=== PATIENT | male | born 1970 | race African-American/Black ===

== ENCOUNTER 2016-07-24 07:00 | Inpatient (IN) ==
[2016-07-24] MEDS ORDERED: FLUOROURACIL 800 MG in SYRINGE 1 EACH IV ONE (09:00)
[2016-07-24] MEDS ORDERED: DEXTROSE 5% IV ONE (09:00)
[2016-07-24] MEDS ORDERED: DEXAMETHASONE 4 MG/1 ML VIAL IV ONE (09:00)
[2016-07-24] MEDS ORDERED: LEUCOVORIN INJ 700 MG in DEXTROSE 5% 250 ML IV ONE (09:00)
[2016-07-24] MEDS ORDERED: PALONOSETRON 0.25 MG/5 ML VIAL IV ONE (09:00)
[2016-07-24] MEDS ORDERED: OXALIPLATIN IV ONE (09:00)
[2016-07-24] MEDS ORDERED: chlorproMAZINE 25 MG TABLET PO PRN (09:14)
[2016-07-24] MEDS ORDERED: LACTULOSE 20 GM/30 ML UDCUP PO PRN (09:14)
[2016-07-24] MEDS ORDERED: BENZTROPINE 2 MG/2 ML AMP IV PRN (09:14)
[2016-07-24] MEDS ORDERED: ALUMINUM/MAGNES/SIMETH MAX STR 30 ML UDCUP PO PRN (09:14)
[2016-07-24] MEDS ORDERED: LOPERAMIDE 2 MG CAPSULE PO PRN ×2 (09:14)
[2016-07-24] MEDS ORDERED: chlorproMAZINE INJ 25 MG in SODIUM CHLORIDE 0.9% 100 ML IV PRN (09:14)
[2016-07-24] MEDS ORDERED: PROMETHAZINE INJ 25 MG in SODIUM CHLORIDE 0.9% 50 ML IV PRN (09:14)
[2016-07-24] MEDS ORDERED: MAGNESIUM HYDROXIDE SUSP 30 ML UDCUP PO PRN (09:14)
[2016-07-24] MEDS ORDERED: ONDANSETRON 4 MG/2 ML VIAL IV PRN (09:14)
[2016-07-24] MEDS ORDERED: TEMAZEPAM 7.5 MG CAPSULE PO PRN (09:14)
[2016-07-24] MEDS ORDERED: guaiFENesin 200 MG/10 ML UDCUP PO PRN (09:14)
[2016-07-24] MEDS ORDERED: chlorproMAZINE INJ 50 MG in SODIUM CHLORIDE 0.9% 100 ML IV PRN (09:14)
[2016-07-24] MEDS ORDERED: MYLANTA/LIDO VISC 2:1 300 ML BOTTLE SWISH/SPIT PRN (09:14)
[2016-07-24] MEDS ORDERED: MYLANTA/LIDO VISC 2:1 300 ML BOTTLE SWISH/SWAL PRN (09:14)
[2016-07-24] MEDS: FLUOROURACIL IV SCH (14:42)
[2016-07-24] MEDS: SODIUM CHLORIDE 0.9% IV SCH (14:42)
--- NOTE | 2016-07-24 14:49 | General Surgery Consult Note ---
Assessment and Plan - Time spent with patient Time spent with patient: Greater than 30 minutes (1) Colon cancer metastasized to lung Status: Acute Assessment and plan: 07/24/16 Colon cancer with patient's report of lung metastasis. Dr Bosch is requesting mediport for ease of chemotherapy treatments. We will review his labs and plan surgery later this week. Unfortunately, he is taking Xarelto, which will need to be held for 3 days prior to surgery; his last reported dose was last night, so we're tentatively planning for port insertion on Sunday or . Current Visit: Yes History of Present Illness Chief complaint: Colon cancer with metastasis; needs mediport History of present illness: Mr. Krishna is a 46 year old male Home Medications Medication Instructions Recorded Confirmed Type ALPRAZolam [Alprazolam] 0.5 mg PO TID 07/24/16 07/24/16 History Atenolol [Atenolol] 50 mg PO DAILY 07/24/16 07/24/16 History Citalopram Hydrobromide [Celexa] 10 mg PO DAILY 07/24/16 07/24/16 History Colchicine [Colcrys] 0.6 mg PO DAILY 07/24/16 07/24/16 History Diclofenac Sodium [Diclofenac 1 % TOP BID PRN 07/24/16 07/24/16 History Sodium 1% Gel] Ferrous Sulfate 325 mg PO DAILY 07/24/16 07/24/16 History Furosemide [Furosemide] 40 mg PO BID 07/24/16 07/24/16 History HYDROcodone/ACETAMIN 10-325 [[place] 1 tablet PO Q6H PRN 07/24/16 07/24/16 History 10-325] Ketoconazole 2% Cream [Nizoral 2% 1 applic TOP BID 07/24/16 07/24/16 History Cream] Pantoprazole Tab [Protonix Tab] 40 mg PO DAILY 07/24/16 07/24/16 History Pregabalin [Lyrica] 100 mg PO TID 07/24/16 07/24/16 History Probenecid 250 mg PO Q12HR 07/24/16 07/24/16 History Rivaroxaban [Xarelto] 20 mg PO DAILY 07/24/16 07/24/16 History guaiFENesin [Mucus Relief] 400 mg PO Q4HR PRN 07/24/16 07/24/16 History hydrALAZINE TAB [Apresoline Tab] 25 mg PO BID 07/24/16 07/24/16 History hydrOXYzine pamoate [Hydroxyzine 50 mg PO Q6HR PRN 07/24/16 07/24/16 History Pamoate] predniSONE TAB [PredniSONE] 5 mg PO DAILY 07/24/16 07/24/16 History Allergies Allergy/AdvReac Type Severity Reaction Status Date / Time acetaminophen [From NyQuil] Allergy Intermediate Swelling Verified 09/07/14 08: 12 of Lip/Tongue/Throat dextromethorphan Allergy Intermediate Swelling Verified 09/07/14 08:12 [From NyQuil] of Lip/Tongue/Throat doxylamine [From NyQuil] Allergy Intermediate Swelling Verified 09/07/14 08:12 of Lip/Tongue/Throat pseudoephedrine [From NyQuil] Allergy Intermediate Swelling Verified 09/07/14 08 :12 of Lip/Tongue/Throat Medical,Surgical,& Family Hx - Medical History Cardio: History of: Hypertension (on meds) Respiratory: History of: Respiratory Problems (uses cpap) Gastrointestinal: History of: Gastrointestinal Cancer (Pt reports colon cancer surgery at [place] in December 2015) Other: History of: Cancer (active treatment) - Family History Family History: Reports;: Family Cancer (grandfather and grandmother), Family Diabetes (aunt), Family Hypertension (mother and father) - Social History Smoking Status: Former smoker Exam - Constitutional Vitals: Period Temp Pulse Resp BP Sys/Umaña Pulse Ox Last 24 Hr 96.4 F-97.0 F 80-95 20-22 159-183/85-93 91-99 General appearance: no acute distress, morbidly obese - Head Head exam: Present: normocephalic - Eye Eye exam: Present: EOMI. Absent: nystagmus, periorbital swelling Pupils: Present: MARGARITA - ENT Mouth exam: Present: normal voice, dry mucosa. Absent: oral lesion - Neck Neck exam: Present: trachea midline, other (Healed trach scar) - Respiratory Respiratory exam: Present: rhonchi. Absent: accessory muscle use, chest wall tenderness, rales, wheezes - Cardiovascular Cardiovascular exam: Present: RRR - GI/Abdominal GI/Abdominal exam: Present: other (Massively obese abdomen with well healed surgical scars. No guarding, no rebound tenderness. No palpable hernias. Hypoactive bowel sounds. ) - Extremities Exam Extremities exam: Present: normal inspection - Neurological Exam Neurological exam: Present: alert, oriented X3 Speech: Present: normal Results - Impressions There are no recorded labs on this patient's chart.
[2016-07-24] MEDS ORDERED: DICLOFENAC 1% GEL 100 GM TUBE TOP PRN (15:04)
[2016-07-24] MEDS: FUROSEMIDE 40 MG TABLET PO SCH (16:16)
[2016-07-24] MEDS: hydrALAZINE 25 MG TABLET PO SCH (22:10)
[2016-07-24] MEDS: PREGABALIN 100 MG CAPSULE PO SCH (22:10)
[2016-07-24] MEDS: PROBENECID 500 MG TABLET PO SCH (22:10)
[2016-07-24] MEDS: DESITIN 4OZ/NYSTATIN 15 GRAM MIXTURE PASTE TOP SCH (22:11)
[2016-07-24] MEDS: ALPRAZolam 0.25 MG TABLET PO PRN (22:11)
[2016-07-24] MEDS: KETOCONAZOLE 2% CREAM 30 GM TUBE TOP SCH (22:11)
[2016-07-25 05:51] LABS: Basophils % 0.4 % (0.0-0.8); Hematocrit 32.8 VOL% (42.0-52.0); Hemoglobin 9.7 GM/DL (14.0-18.0); Immature Granulocytes % 0.6 %; Immature Granulocytes Absolute 0.06 #; Lymphocytes # 1.3 10*3/uL (1.4-4.0); Lymphocytes % 12.3 % (21.2-54.2); Mean Corpuscular HGB Conc 29.6 GM/DL (32-36); Mean Corpuscular Hemoglobin 22 PG (27-34); Mean Corpuscular Volume 74.4 FL (87-102); Mean Platelet Volume 11.3 FL (9.6-12.0); Monocytes # 1.3 10*3/uL (0.11-0.8); Neutrophils # 7.9 10*3/uL (1.4-7.4); Neutrophils % 74.7 % (38.7-73.9); Platelet Count 411 T/CUMM (130-400); Red Blood Count 4.41 MC/CUMM (3.8-5.5); Red Cell Distribution Width 20.6 % (9.3-17.3); White Blood Count 10.6 T/CUMM (4-12)
[2016-07-25 06:02] LABS: INR 1.2; PT Patient Result 12.3 SECS
[2016-07-25 06:03] LABS: Partial Thromboplastin Time 42.8 SECS (0-40)
[2016-07-25 06:21] LABS: Albumin 2.5 G/DL (3.4-5.0); Bilirubin,Total 0.4 MG/DL (0.2-1.0); Calcium 8.5 MG/DL (8.5-10.1); Osmolality,Calculated 286.1 MOS/KG (273-304); Potassium 4.1 MMOL/L (3.5-5.1); Total Protein 6.8 G/DL (6.4-8.3)
--- NOTE | 2016-07-25 07:21 | EKG Report ---
Stationary ECG Study [facility] Test Date: 07/25/2016 6:47:36 AM Pat Name: SENIA PATE Department: Room: 432 Gender: M Color Matcher: BIN : 1970 Requested by: Rick Castro Order Number: [id number] Reading MD: NIHARIKA REYNOLDS Intervals [place] Rate: 60 P: 44 VT: 190 QRS: 116 QRSD: 113 T: 4 QT: 454 QTc: 455 Interpretive Statements NORMAL SINUS RHYTHM RIGHT AXIS DEVIATION INCOMPLETE RIGHT BUNDLE Electronically Signed On 07-25-16 18:24:25 CDT by NIHARIKA REYNOLDS [email or web address]
--- NOTE | 2016-07-25 08:44 | XRay Report ---
Portable chest Date: 07/25/2016 Clinical history: Report preoperative evaluation for MediPort catheter placement Comparison: 02/10/2012 Technique: Portable AP sitting chest Findings: Stable cardiomegaly with uncoiling of the aorta. Calcified granulomata/nodes with progressive ill-defined nodular densities. Increased hilar density with degenerative changes. Impression: Old healed healed granulomatous disease with chronic scarring. Progressive noncalcified nodular densities which can be seen with possible metastatic disease, artifact, etc. More prominent julien which may be related to prominent vasculature, adenopathy, etc. CT of the chest may be helpful for further evaluation. PROCEDURE INTERPRETED AT [facility] DEPARTMENT OF RADIOLOGY Final Report Signed by: Dr. Sammie Argueta
--- NOTE | 2016-07-25 09:13 | Oncology History&Physical ---
Assessment and Plan (1) Colon cancer metastasized to lung Status: Acute Assessment and plan: Chemotherapy cycle 1 with FOLFOX. Patient with history of embolic event on Xarelto. This will be held temporarily for Mediport placement on with Dr. Rick Castro. The chemotherapy should complete Sunday evening with discharge with resumption of anticoagulation at that time Current Visit: Yes History of Present Illness Chief complaint: Chemotherapy History of present illness: Mr. Krishna is a 46 year old male Admitted for first cycle of chemotherapy for metastatic colon cancer. This was diagnosed approximately November or December 2015 at [facility] with surgery. The patient does have stage IV disease with lung metastases. He has morbid obesity and has had significant difficulty with ambulation and mobilization following his surgery. He has had several hospitalizations and several rehabilitation stay over this several month interval. He is with his mother today. He is able to stand and can ambulate small amounts. This is probably as good as he is going to get. He does wish to pursue chemotherapy though I have made him aware that there could be additional side effects related to the chemotherapy administration Home Medications Medication Instructions Recorded Confirmed Type ALPRAZolam [Alprazolam] 0.5 mg PO TID 07/24/16 07/24/16 History Atenolol [Atenolol] 50 mg PO DAILY 07/24/16 07/24/16 History Citalopram Hydrobromide [Celexa] 10 mg PO DAILY 07/24/16 07/24/16 History Colchicine [Colcrys] 0.6 mg PO DAILY 07/24/16 07/24/16 History Diclofenac Sodium [Diclofenac 1 % TOP BID PRN 07/24/16 07/24/16 History Sodium 1% Gel] Ferrous Sulfate 325 mg PO DAILY 07/24/16 07/24/16 History Furosemide [Furosemide] 40 mg PO BID 07/24/16 07/24/16 History HYDROcodone/ACETAMIN 10-325 [[place] 1 tablet PO Q6H PRN 07/24/16 07/24/16 History 10-325] Ketoconazole 2% Cream [Nizoral 2% 1 applic TOP BID 07/24/16 07/24/16 History Cream] Pantoprazole Tab [Protonix Tab] 40 mg PO DAILY 07/24/16 07/24/16 History Pregabalin [Lyrica] 100 mg PO TID 07/24/16 07/24/16 History Probenecid 250 mg PO Q12HR 07/24/16 07/24/16 History Rivaroxaban [Xarelto] 20 mg PO DAILY 07/24/16 07/24/16 History guaiFENesin [Mucus Relief] 400 mg PO Q4HR PRN 07/24/16 07/24/16 History hydrALAZINE TAB [Apresoline Tab] 25 mg PO BID 07/24/16 07/24/16 History hydrOXYzine pamoate [Hydroxyzine 50 mg PO Q6HR PRN 07/24/16 07/24/16 History Pamoate] predniSONE TAB [PredniSONE] 5 mg PO DAILY 07/24/16 07/24/16 History Allergies Allergy/AdvReac Type Severity Reaction Status Date / Time acetaminophen [From NyQuil] Allergy Intermediate Swelling Verified 09/07/14 08: 12 of Lip/Tongue/Throat dextromethorphan Allergy Intermediate Swelling Verified 09/07/14 08:12 [From NyQuil] of Lip/Tongue/Throat doxylamine [From NyQuil] Allergy Intermediate Swelling Verified 09/07/14 08:12 of Lip/Tongue/Throat pseudoephedrine [From NyQuil] Allergy Intermediate Swelling Verified 09/07/14 08 :12 of Lip/Tongue/Throat Medical,Surgical,& Family Hx - Medical History Cardio: History of: Hypertension (on meds) Respiratory: History of: Respiratory Problems (uses cpap) Gastrointestinal: History of: Gastrointestinal Cancer (Pt reports colon cancer surgery at [place] in December 2015) Other: History of: Cancer (active treatment) - Family History Family History: Reports;: Family Cancer (grandfather and grandmother), Family Diabetes (aunt), Family Hypertension (mother and father) - Social History Smoking Status: Former smoker - Constitutional Constitutional: Present: fatigue. Absent: fever(s) - EENT Eye: Absent: blurry vision Ears: Absent: decreased hearing Nose, mouth and throat: Absent: dizziness, dysphagia, epistaxis - Cardiovascular Cardiovascular ROS IM: Absent: chest pain - Respiratory Respiratory: Absent: cough Exam - Constitutional Vitals: Period Temp Pulse Resp BP Sys/Umaña Pulse Ox Last 24 Hr 96.1 F-97.4 F 60-80 20-20 145-183/83-93 91-99 General appearance: no acute distress, over weight, morbidly obese - Head Head Exam: Present: atraumatic. Absent: normal inspection - ENT ENT exam: Present: normal external ear exam - Neck Neck exam: Present: normal inspection. Absent: lymphadenopathy - Respiratory Respiratory exam: Present: CTAB. Absent: accessory muscle use, chest wall tenderness - Cardiovascular Cardiovascular exam: Present: RRR - GI/Abdominal GI/Abdominal exam: Absent: firm, guarding - Extremities Exam Extremities exam: Present: normal capillary refill - Neurological Exam Neurological exam: Present: alert, oriented X3 - Psychiatric Psychiatric exam: Present: normal affect, normal mood - Skin Skin exam: Present: warm, dry Results - Labs CBC & BMP: 07/25/16 04:19 07/25/16 04:19 Quality Measures - VTE Contraindication to Pharmacological VTE Prophylaxis: High Risk of Bleeding
[2016-07-25] MEDS: PROBENECID 500 MG TABLET PO SCH ×2 (10:05→21:16)
[2016-07-25] MEDS: CITALOPRAM 20 MG TABLET PO SCH (10:05)
[2016-07-25] MEDS: COLCHICINE 0.6 MG TABLET PO SCH (10:06)
[2016-07-25] MEDS: hydrALAZINE 25 MG TABLET PO SCH ×2 (10:07→21:16)
[2016-07-25] MEDS: PANTOPRAZOLE 40 MG TABLET PO SCH (10:07)
[2016-07-25] MEDS: FUROSEMIDE 40 MG TABLET PO SCH ×2 (10:07→15:41)
[2016-07-25] MEDS: ATENOLOL 50 MG TABLET PO SCH (10:07)
[2016-07-25] MEDS: DESITIN 4OZ/NYSTATIN 15 GRAM MIXTURE PASTE TOP SCH ×2 (10:10→21:18)
[2016-07-25] MEDS: KETOCONAZOLE 2% CREAM 30 GM TUBE TOP SCH ×2 (10:10→21:18)
[2016-07-25] MEDS: PREGABALIN 100 MG CAPSULE PO SCH ×3 (10:13→21:16)
--- NOTE | 2016-07-25 10:24 | General Surgery Progress Note ---
Assessment and Plan - Time spent with patient Time spent with patient: Less than 30 minutes (1) Colon cancer metastasized to lung Status: Acute Assessment and plan: 07/25/2016 Patient with colon cancer and pleural metastasis, tolerating his chemotherapy well. We have planned for Mediport placement on . His Xarelto has been held. The procedure was discussed again with the patient and his mother, and they seem to have no further questions. We will visit again tomorrow to be certain that he is still stable and still wishes to proceed. 07/24/16 Colon cancer with patient's report of lung metastasis. Dr Bosch is requesting mediport for ease of chemotherapy treatments. We will review his labs and plan surgery later this week. Unfortunately, he is taking Xarelto, which will need to be held for 3 days prior to surgery; his last reported dose was last night, so we're tentatively planning for port insertion on Sunday or . Current Visit: Yes Subjective Patient reports: Present: no new complaints, other (Tolerating chemotherapy without complaints) Exam - Constitutional Vitals: Period Temp Pulse Resp BP Sys/Umaña Pulse Ox Last 24 Hr 96.1 F-97.4 F 60-80 20-20 145-183/83-93 91-99 General appearance: no acute distress, morbidly obese, other (Patient is awake and alert, without complaints. His mother is at the bedside.) - Respiratory Respiratory exam: Present: clear to auscultation bilaterally - Cardiovascular Cardiovascular exam: Present: RRR - GI/Abdominal GI/Abdominal exam: Present: soft. Absent: guarding, tenderness Results - Labs CBC & BMP: 07/25/16 04:19 07/25/16 04:19 Lab Results: I have reviewed the past 24 hour labs (Labs noted) Quality Measures - VTE Contraindication to Pharmacological VTE Prophylaxis: High Risk of Bleeding
[2016-07-25] MEDS: SODIUM CHLORIDE 0.9% IV SCH (13:08)
[2016-07-25] MEDS: FLUOROURACIL IV SCH (13:08)
[2016-07-25] MEDS: HydrOXYzine PAMOATE 50 MG CAPSULE PO PRN (21:26)
[2016-07-26 08:08] LABS: Basophils # 0.1 10*3/uL (0.0-0.2); Basophils % 0.8 % (0.0-0.8); Eosinophils # 0.2 10*3/uL (0.0-0.87); Eosinophils % 1.7 % (0.00-10.9); Hemoglobin 9.7 GM/DL (14.0-18.0); Immature Granulocytes % 0.6 %; Immature Granulocytes Absolute 0.06 #; Lymphocytes # 1.3 10*3/uL (1.4-4.0); Lymphocytes % 13.3 % (21.2-54.2); Mean Corpuscular HGB Conc 29.4 GM/DL (32-36); Mean Corpuscular Hemoglobin 22 PG (27-34); Mean Corpuscular Volume 73.7 FL (87-102); Mean Platelet Volume 11.1 FL (9.6-12.0); Monocytes # 0.6 10*3/uL (0.11-0.8); Monocytes % 5.8 % (1.7-12.7); Neutrophils # 7.6 10*3/uL (1.4-7.4); Neutrophils % 77.8 % (38.7-73.9); Platelet Count 422 T/CUMM (130-400); Red Blood Count 4.48 MC/CUMM (3.8-5.5); Red Cell Distribution Width 20.9 % (9.3-17.3); White Blood Count 9.8 T/CUMM (4-12)
[2016-07-26 08:19] LABS: INR 1.1; PT Patient Result 11.5 SECS; Partial Thromboplastin Time 36.3 SECS (0-40)
[2016-07-26] MEDS: PROBENECID 500 MG TABLET PO SCH ×2 (08:19→20:39)
[2016-07-26] MEDS: FERROUS SULFATE 325 MG TABLET PO SCH (08:19)
[2016-07-26] MEDS: ATENOLOL 50 MG TABLET PO SCH (08:20)
[2016-07-26] MEDS: PREGABALIN 100 MG CAPSULE PO SCH ×3 (08:20→20:39)
[2016-07-26] MEDS: CITALOPRAM 20 MG TABLET PO SCH (08:20)
[2016-07-26] MEDS: hydrALAZINE 25 MG TABLET PO SCH ×2 (08:20→20:39)
[2016-07-26] MEDS: PANTOPRAZOLE 40 MG TABLET PO SCH (08:20)
[2016-07-26] MEDS: COLCHICINE 0.6 MG TABLET PO SCH (08:20)
[2016-07-26] MEDS: HydrOXYzine PAMOATE 50 MG CAPSULE PO PRN ×2 (08:20→20:49)
[2016-07-26] MEDS: FUROSEMIDE 40 MG TABLET PO SCH ×2 (08:20→16:35)
[2016-07-26] MEDS: DESITIN 4OZ/NYSTATIN 15 GRAM MIXTURE PASTE TOP SCH ×2 (08:21→20:41)
[2016-07-26] MEDS: KETOCONAZOLE 2% CREAM 30 GM TUBE TOP SCH ×2 (08:21→20:42)
--- NOTE | 2016-07-26 08:23 | Oncology Progress Note ---
Assessment and Plan (1) Colon cancer metastasized to lung Status: Acute Assessment and plan: Chemotherapy cycle 1 with FOLFOX. Patient with history of embolic event on Xarelto. This will be held temporarily for Mediport placement on with Dr. Rick Castro. The chemotherapy should complete Sunday with discharge with resumption of anticoagulation at that time Current Visit: Yes Oncology Subjective PN Interval history: Patient remains stable continuing on cycle 1 day 3 chemotherapy for metastatic colon cancer. Plans are for Mediport placement tomorrow with Xarelto on hold. The patient is up and seated on bedside. He has a good appetite. He denies nausea vomiting. His lungs are clear to bilateral auscultation and his heart rhythm is regular. No new orders Exam - Constitutional Vitals: Period Temp Pulse Resp BP Sys/Umaña Pulse Ox Last 24 Hr 96.1 F-99.6 F 72-92 16-21 142-209/78-108 91-93 Results - Labs CBC & BMP: 07/26/16 07:30 07/25/16 04:19 Quality Measures - VTE Contraindication to Pharmacological VTE Prophylaxis: High Risk of Bleeding
[2016-07-26 08:34] LABS: Albumin 2.4 G/DL (3.4-5.0); Bilirubin,Total 0.6 MG/DL (0.2-1.0); Calcium 8.5 MG/DL (8.5-10.1); Total Protein 6.7 G/DL (6.4-8.3)
--- NOTE | 2016-07-26 09:20 | General Surgery Progress Note ---
Assessment and Plan (1) Colon cancer metastasized to lung Status: Acute Assessment and plan: 07/26/2016. Patient is doing well has completed chemotherapy at this time. I have him set up for Mediport placement tomorrow since that will be his fifth day off his Xarelto. He understands what we are doing and agreeable to the procedure at this point. May be able to go home after the Mediport is placed. Current Visit: Yes Subjective Patient reports: Present: feels better, tolerating a regular diet, bowel movement, afebrile Exam - Constitutional Vitals: Period Temp Pulse Resp BP Sys/Umaña Pulse Ox Last 24 Hr 96.1 F-99.6 F 72-92 16-21 142-209/78-108 91-93 General appearance: mild distress - Head Head exam: Present: normal inspection - ENT ENT exam: Present: normal exam - Neck Neck exam: Present: normal inspection - Respiratory Respiratory exam: Present: rales - Cardiovascular Cardiovascular exam: Present: RRR - GI/Abdominal GI/Abdominal exam: Present: normal bowel sounds, soft - Extremities Exam Extremities exam: Present: normal inspection - Neurological Exam Neurological exam: Present: alert, oriented X3, CN II-XII intact - Skin Skin exam: Present: normal color, warm, dry Results - Labs CBC & BMP: 07/26/16 07:30 07/26/16 07:30 Lab Results: I have reviewed the past 24 hour labs Quality Measures - VTE Contraindication to Pharmacological VTE Prophylaxis: High Risk of Bleeding
[2016-07-26] MEDS: ALPRAZolam 0.25 MG TABLET PO PRN (20:49)
[2016-07-27] MEDS ORDERED: ceFAZolin 2,000 MG in PREMIX 1 EACH IV ONE (07:00)
[2016-07-27] MEDS: ATENOLOL 50 MG TABLET PO SCH ×2 (07:30→10:46)
[2016-07-27] MEDS ORDERED: BUPIVACAINE MPF 0.25% /EPI 30 ML VIAL ONE (07:42)
[2016-07-27] MEDS ORDERED: ceFAZolin 1,000 MG VIAL ONE (07:42)
[2016-07-27] MEDS ORDERED: HEPARIN 5,000 UNIT/1 ML VIAL ONE (07:42)
--- NOTE | 2016-07-27 08:45 | Discharge Summary ---
Hospital Course - Hospital Course Hospital Course: Patient with metastatic colon cancer admitted with severe debility. The patient is morbidly obese and cannot walk. He has asked for assistance with bathing from the nursing staff. He has completed cycle 1 FOLFOX chemotherapy last evening and is receiving Mediport catheter today. Plans to restart Xarelto later tonight for history of thrombosis. See home medication list. Physical exam otherwise shows him to be obese but awake alert in no distress. We plan to readmit on August 07 Diagnosis - Discharge Diagnosis (1) Colon cancer metastasized to lung Status: Acute Discharge Plan - Discharge Medications Continue Citalopram Hydrobromide [Celexa] 10 mg PO DAILY hydrALAZINE TAB [Apresoline Tab] 25 mg PO BID Pregabalin [Lyrica] 100 mg PO TID Ferrous Sulfate 325 mg PO DAILY Ketoconazole 2% Cream [Nizoral 2% Cream] 1 applic TOP BID Probenecid 250 mg PO Q12HR HYDROcodone/ACETAMIN 10-325 [[place] 10-325] 1 tablet PO Q6H PRN PRN Reason: Pain ALPRAZolam [Alprazolam] 0.5 mg PO TID Colchicine [Colcrys] 0.6 mg PO DAILY Diclofenac Sodium [Diclofenac Sodium 1% Gel] 1 % TOP BID PRN PRN Reason: Pain Rivaroxaban [Xarelto] 20 mg PO DAILY Furosemide 40 mg PO BID Pantoprazole Tab [Protonix Tab] 40 mg PO DAILY guaiFENesin [Mucus Relief] 400 mg PO Q4HR PRN PRN Reason: Sinus Symptoms Atenolol 50 mg PO DAILY hydrOXYzine pamoate [Hydroxyzine Pamoate] 50 mg PO Q6HR PRN PRN Reason: Itching Discontinued predniSONE TAB [PredniSONE] 5 mg PO DAILY - Follow Up or Referral - Forms/Instructions Exam - Constitutional Vitals: Period Temp Pulse Resp BP Sys/Umaña Pulse Ox Last 24 Hr 98.4 F-99.9 F 82-94 18-21 150-186/80-104 89-97 Discharge Results Procedures and tests throughout hospitalization: Pending Orders 07/27/16 IR fluoro guide cv cath Routine DS: Provider Date of admission: 07/24/16 09:14 Primary care physician: Rick Rod DO Attending physician on admission: Spencer Bosch MD Consults: 07/24/16 08:34 Consult to Dietitian [CONS] Routine Reason for Dietitian: Diet Instruction 07/24/16 08:54 Consult to Physician [CONS] Routine Comment: Consulting Provider: Rick Castro Consulting Provider Notified: Yes When should Consulting Provider be notified: Now Consult to Specialist Group: Cardiology When should Consulting Provider be notified: Now Person Notified: SHANA Date Notified: 07/24/16 Time Notified: 08:55 Discharging clinician: Spencer Bosch MD
[2016-07-27] MEDS: FUROSEMIDE 40 MG TABLET PO SCH (09:06)
[2016-07-27] MEDS ORDERED: DEXTROSE 50% 25 GM/50 ML VIAL IV PRN (09:30)
[2016-07-27] MEDS ORDERED: SODIUM CHLORIDE 0.45% 1,000 ML IV SCH (09:30)
[2016-07-27] MEDS ORDERED: HYDROmorphone 2 MG/1 ML VIAL IV PRN (09:30)
[2016-07-27] MEDS ORDERED: GLUCAGON 1 MG VIAL IM PRN (09:30)
--- NOTE | 2016-07-27 09:44 | Operative Note ---
Date of procedure: 07/27/16 Pre-op diagnosis: Colon cancer needing venous access for chemotherapy Post-op diagnosis: same Procedure: Operative note: Preoperative diagnosis: Colon cancer needing venous access for chemotherapy. Postoperative diagnosis: Same Procedure: Insertion of PowerPort right cephalic vein Surgeon Dr. Castro Web Content Coordinator Wendy Tejeda, REDUCING MACHINE OPERATOR ACNP Anesthesia was managed anesthetic care with local Brief history: 46-year-old obese black male who has metastatic colon cancer and now needing venous access for chemotherapy. He has been on Xarelto and we had a mild 4 days now to bring them down at this time to place the port in. Procedure: With patient in the supine position prepped and draped in sterile fashion timeout and antibiotics completed I approach the area of the right deltopectoral groove infraclavicular area on the right side of the chest wall. At that point we infiltrated local anesthetic and I made an incision through the skin subtenons tissue and carefully dissected down using light cauterization controlling bleeding. We got down to the pectoralis major muscle and carefully dissected superior to that to identified the deltopectoral groove. This area was deep still good bit of fatty tissue difficulty in seeing what we were able to carefully dissected until we found a more than adequate cephalic vein. Isolated it proximally with a 2-0 Vicryl tie and tied that down securely. Then isolated it distally with 2 2-0 Vicryl ties and then we put him in Trendelenburg. Made a venotomy incision and then carefully inserted the catheter into the vein brought C arm up carefully watch this place it in the right atrium superior vena caval area. Once it was in good position we aspirated irrigated and aspirated and irrigated easily. With that completed I then tied down the 2 2-0 Vicryl ties to secure the catheter in the vein. I placed clips on the openings of the veins to be sure that we closed the vein down so we did get him back bleeding. Once that was completed then I would begin to create a pocket inferior to this using electrocauterization. We had a pigmentary into the fatty tissue at this point because he is so big and so much fat in the chest wall in order to be sure that they can find it to get to it easily we could not buried it as deeply as we normally would. Once we had once we had a pocket created then we cut off the excess of the catheter and placed it onto the reservoir and put the locking device in position. We then aspirated and irrigated through the reservoir and address aspirated and irrigated easily. With that then we then sutured the reservoir into the pocket with 2-0 Vicryl sutures distally and on either side keep it from rotating. Once we have that completed brought C arm back up and we checked position and it looked good with good's smooth course in the catheter at this time. And was in good position. That having been completed then we washed out the pocket with Ancef solution. We then closed the subtenons tissue running 4-0 Vicryl we closed the skin with a running 4-0 Monocryl Dermabond was then applied. Dressing was applied patient taken recovery room. Estimated blood loss 10 cc Sponge count correct 2 Drains none Complications none Condition stable satisfactory Anesthesia: MAC, local (0.25% Marcaine with epinephrine mixed [id number] 1% Xylocaine plain) Surgeon / Physician: Rick Castro Web Content Coordinator: Wendy Tejeda Estimated blood loss: other (10 cc) Specimens: none sent Condition: stable Disposition: floor Results - Labs CBC & BMP: 07/26/16 07:30 07/26/16 07:30 Discharge Plan - Discharge Medications Continue Citalopram Hydrobromide [Celexa] 10 mg PO DAILY hydrALAZINE TAB [Apresoline Tab] 25 mg PO BID Pregabalin [Lyrica] 100 mg PO TID Ferrous Sulfate 325 mg PO DAILY Ketoconazole 2% Cream [Nizoral 2% Cream] 1 applic TOP BID Probenecid 250 mg PO Q12HR HYDROcodone/ACETAMIN 10-325 [[place] 10-325] 1 tablet PO Q6H PRN PRN Reason: Pain ALPRAZolam [Alprazolam] 0.5 mg PO TID Colchicine [Colcrys] 0.6 mg PO DAILY Diclofenac Sodium [Diclofenac Sodium 1% Gel] 1 % TOP BID PRN PRN Reason: Pain Rivaroxaban [Xarelto] 20 mg PO DAILY Furosemide 40 mg PO BID Pantoprazole Tab [Protonix Tab] 40 mg PO DAILY guaiFENesin [Mucus Relief] 400 mg PO Q4HR PRN PRN Reason: Sinus Symptoms Atenolol 50 mg PO DAILY hydrOXYzine pamoate [Hydroxyzine Pamoate] 50 mg PO Q6HR PRN PRN Reason: Itching Discontinued predniSONE TAB [PredniSONE] 5 mg PO DAILY - Follow Up or Referral - Forms/Instructions
[2016-07-27] MEDS ORDERED: fentaNYL 100 MCG/2 ML VIAL ONE (09:50)
[2016-07-27] MEDS ORDERED: MIDAZOLAM 2 MG/2 ML VIAL ONE (09:50)
[2016-07-27] MEDS ORDERED: SODIUM CHLORIDE 0.9% 100 ML IV ONE (09:51)
--- NOTE | 2016-07-27 10:20 | XRay Report ---
Portable chest Date: 07/27/2016 Clinical history: MediPort insertion Comparison: 07/25/2016 Technique: Portable AP sitting chest Findings: The heart remains enlarged with uncoiling of the aorta. Interval insertion of right subclavian venous access catheter with tip at junction of SVC and right atrium. No pneumothorax. Chronic scarring in the lungs with progressive atelectasis. Residual noncalcified nodules. Residual increased hilar density with degenerative changes. Impression: Status post insertion of MediPort catheter with no pneumothorax. Expiratory chest with progressive atelectasis. Residual ill-defined noncalcified nodular densities and prominent julein. CT may be helpful for further evaluation. PROCEDURE INTERPRETED AT [facility] DEPARTMENT OF RADIOLOGY Final Report Signed by: Dr. Sammie Argueta
[2016-07-27 10:36] VITALS: BP 134/86
[2016-07-27] MEDS: PANTOPRAZOLE 40 MG TABLET PO SCH ×2 (10:45→12:31)
[2016-07-27] MEDS: FERROUS SULFATE 325 MG TABLET PO SCH ×2 (10:45→12:30)
[2016-07-27] MEDS: PREGABALIN 100 MG CAPSULE PO SCH ×2 (10:45→12:30)
[2016-07-27] MEDS: KETOCONAZOLE 2% CREAM 30 GM TUBE TOP SCH (10:45)
[2016-07-27] MEDS: DESITIN 4OZ/NYSTATIN 15 GRAM MIXTURE PASTE TOP SCH (10:45)
[2016-07-27] MEDS: CITALOPRAM 20 MG TABLET PO SCH ×2 (10:45→12:30)
[2016-07-27] MEDS: PROBENECID 500 MG TABLET PO SCH ×2 (10:45→12:30)
[2016-07-27] MEDS: hydrALAZINE 25 MG TABLET PO SCH ×2 (10:45→12:30)
[2016-07-27] MEDS: COLCHICINE 0.6 MG TABLET PO SCH ×2 (10:45→12:30)
--- NOTE | 2016-07-27 10:55 | Anesthesia Post-Op ---
Anesthesia Post OP - Post Ansesthetic Evaluation Patient seen in post op: Yes Resp: within normal limits CV: within normal limits Mental: within normal limits Temp: within normal limits [id number]: within normal limits Nausea and Vomiting: within normal limits Pain: within normal limits
[2016-07-27] MEDS ORDERED: INSULIN REGULAR 100 UNIT/ML SUBCUT SCH (11:30)
[2016-07-27] MEDS ORDERED: ONDANSETRON 4 MG/2 ML VIAL ONE (12:00)
[2016-07-27] MEDS ORDERED: PROPOFOL 200 MG/20 ML VIAL IV ONE (12:00)
[2016-07-27] MEDS ORDERED: LIDOCAINE 100 MG/5 ML SYRINGE ONE (12:00)
[2016-07-27] MEDS: ALPRAZolam 0.25 MG TABLET PO PRN (12:30)
[2016-07-27] MEDS ORDERED: ceFAZolin 2,000 MG in PREMIX 1 EACH IV SCH (15:34)
== END 2016-07-27 13:15 | disposition home or self-care, planned readmission (81) | DRG 847 ==
LOC: N.4E 07:29
PROVIDERS: ADMIT Specialist; ATTEND Specialist

== ENCOUNTER 2016-08-08 07:00 | Inpatient (IN) ==
[2016-08-08] MEDS ORDERED: chlorproMAZINE INJ 25 MG in SODIUM CHLORIDE 0.9% 100 ML IV PRN (09:14)
[2016-08-08] MEDS ORDERED: LOPERAMIDE 2 MG CAPSULE PO PRN ×2 (09:14)
[2016-08-08] MEDS ORDERED: MYLANTA/LIDO VISC 2:1 300 ML BOTTLE SWISH/SPIT PRN (09:14)
[2016-08-08] MEDS ORDERED: MAGNESIUM HYDROXIDE SUSP 30 ML UDCUP PO PRN (09:14)
[2016-08-08] MEDS ORDERED: ONDANSETRON 4 MG/2 ML VIAL IV PRN (09:14)
[2016-08-08] MEDS ORDERED: ACETAMINOPHEN 325 MG TABLET PO PRN (09:14)
[2016-08-08] MEDS ORDERED: LACTULOSE 20 GM/30 ML UDCUP PO PRN (09:14)
[2016-08-08] MEDS ORDERED: MYLANTA/LIDO VISC 2:1 300 ML BOTTLE SWISH/SWAL PRN (09:14)
[2016-08-08] MEDS ORDERED: guaiFENesin 200 MG/10 ML UDCUP PO PRN (09:14)
[2016-08-08] MEDS ORDERED: chlorproMAZINE INJ 50 MG in SODIUM CHLORIDE 0.9% 100 ML IV PRN (09:14)
[2016-08-08] MEDS ORDERED: diphenhydrAMINE CAP 25 MG CAPSULE PO PRN (09:14)
[2016-08-08] MEDS ORDERED: traMADol 50 MG TABLET PO PRN (09:14)
[2016-08-08] MEDS ORDERED: chlorproMAZINE 25 MG TABLET PO PRN (09:14)
[2016-08-08] MEDS ORDERED: ALUMINUM/MAGNES/SIMETH MAX STR 30 ML UDCUP PO PRN (09:14)
[2016-08-08] MEDS ORDERED: ALPRAZolam 0.25 MG TABLET PO PRN (09:14)
[2016-08-08] MEDS ORDERED: BENZTROPINE 2 MG/2 ML AMP IV PRN (09:14)
[2016-08-08] MEDS ORDERED: PROMETHAZINE INJ 25 MG in SODIUM CHLORIDE 0.9% 50 ML IV PRN (09:14)
[2016-08-08] MEDS ORDERED: TEMAZEPAM 7.5 MG CAPSULE PO PRN (09:14)
[2016-08-08] MEDS ORDERED: PALONOSETRON 0.25 MG/5 ML VIAL IV ONE (09:30)
[2016-08-08] MEDS ORDERED: DEXAMETHASONE 10 MG/1 ML VIAL IV ONE (09:30)
[2016-08-08] MEDS ORDERED: OXALIPLATIN IV ONE (10:00)
[2016-08-08] MEDS ORDERED: LEUCOVORIN INJ 700 MG in DEXTROSE 5% 250 ML IV ONE (10:00)
[2016-08-08] MEDS ORDERED: FLUOROURACIL 800 MG in SYRINGE 1 EACH IV ONE (10:00)
[2016-08-08] MEDS ORDERED: DEXTROSE 5% IV ONE (10:00)
[2016-08-08 10:01] LABS: Basophils # 0.1 10*3/uL (0.0-0.2); Basophils % 1.1 % (0.0-0.8); Eosinophils # 0.2 10*3/uL (0.0-0.87); Eosinophils % 2.7 % (0.00-10.9); Hematocrit 34.1 VOL% (42.0-52.0); Hemoglobin 10.1 GM/DL (14.0-18.0); Immature Granulocytes % 0.8 %; Immature Granulocytes Absolute 0.06 #; Lymphocytes # 1.8 10*3/uL (1.4-4.0); Lymphocytes % 23.1 % (21.2-54.2); Mean Corpuscular HGB Conc 29.6 GM/DL (32-36); Mean Corpuscular Hemoglobin 22 PG (27-34); Mean Corpuscular Volume 73.8 FL (87-102); Mean Platelet Volume 10.1 FL (9.6-12.0); Monocytes # 1.1 10*3/uL (0.11-0.8); Monocytes % 13.5 % (1.7-12.7); Neutrophils # 4.6 10*3/uL (1.4-7.4); Neutrophils % 58.8 % (38.7-73.9); Platelet Count 407 T/CUMM (130-400); Red Blood Count 4.62 MC/CUMM (3.8-5.5); Red Cell Distribution Width 21.5 % (9.3-17.3); White Blood Count 7.8 T/CUMM (4-12)
[2016-08-08 10:39] LABS: Alanine Aminotransferase 15 U/L (16-61); Albumin 2.7 G/DL (3.4-5.0); Alkaline Phosphatase 118 U/L (45-117); Aspartate Amino Transferase 23 U/L (0-37); Bilirubin,Total < 0.39 MG/DL (0.2-1.0); Total Protein 6.9 G/DL (6.4-8.3)
[2016-08-08 10:40] LABS: Blood Urea Nitrogen 16 MG/DL (7-18); Glucose 86 MG/DL (74-106); Magnesium 1.5 MG/DL (1.8-2.4); Osmolality,Calculated 280.3 MOS/KG (273-304); Potassium 3.4 MMOL/L (3.5-5.1); Sodium 141 MMOL/L (136-145)
[2016-08-08] MEDS: SODIUM CHLORIDE 0.9% IV SCH (14:37)
[2016-08-08] MEDS: FLUOROURACIL IV SCH (14:37)
[2016-08-08] MEDS ORDERED: DICLOFENAC 1% GEL 100 GM TUBE TOP PRN (15:41)
[2016-08-08] MEDS: FUROSEMIDE 40 MG TABLET PO SCH (16:16)
[2016-08-08] MEDS: hydrALAZINE 25 MG TABLET PO SCH (20:35)
[2016-08-08] MEDS: PROBENECID 500 MG TABLET PO SCH (20:36)
[2016-08-08] MEDS: PREGABALIN 100 MG CAPSULE PO SCH (20:36)
[2016-08-08] MEDS: ALPRAZolam 0.5 MG TABLET PO SCH (20:37)
[2016-08-08] MEDS: KETOCONAZOLE 2% CREAM 30 GM TUBE TOP SCH (20:37)
[2016-08-09] MEDS: COLCHICINE 0.6 MG TABLET PO SCH (09:05)
[2016-08-09] MEDS: PROBENECID 500 MG TABLET PO SCH ×2 (09:05→20:41)
[2016-08-09] MEDS: PREGABALIN 100 MG CAPSULE PO SCH ×3 (09:06→20:42)
[2016-08-09] MEDS: ALPRAZolam 0.5 MG TABLET PO SCH ×3 (09:06→20:41)
[2016-08-09] MEDS: RIVAROXABAN 10 MG TABLET PO SCH (09:06)
[2016-08-09] MEDS: CITALOPRAM 20 MG TABLET PO SCH (09:06)
[2016-08-09] MEDS: FUROSEMIDE 40 MG TABLET PO SCH ×2 (09:06→16:27)
[2016-08-09] MEDS: hydrALAZINE 25 MG TABLET PO SCH ×2 (09:06→20:41)
[2016-08-09] MEDS: FERROUS SULFATE 325 MG TABLET PO SCH (09:06)
[2016-08-09] MEDS: KETOCONAZOLE 2% CREAM 30 GM TUBE TOP SCH ×2 (09:07→20:42)
[2016-08-09] MEDS: ATENOLOL 50 MG TABLET PO SCH (09:07)
[2016-08-09] MEDS: PANTOPRAZOLE 40 MG TABLET PO SCH (09:07)
--- NOTE | 2016-08-09 09:12 | Oncology History&Physical ---
Assessment and Plan (1) Colon cancer metastasized to lung Status: Acute Assessment and plan: Continuing cycle 2 chemotherapy with FOLFOX. We will consider for bevacizumab with perhaps cycle 3 or 4. We are awaiting complete healing of his Mediport catheter with cycle 2. This would also increase his risk for further thromboembolism. Current Visit: No History of Present Illness Chief complaint: Chemo History of present illness: Mr. Krishna is a 46 year old male With obesity and debility and metastatic colon cancer who is admitted for cycle #2 chemotherapy with FOLFOX. The patient has minimal ambulation and is cared for extensively by family at home. On physical examination he is pleasant and cooperative awake alert and interactive. He is breathing comfortable on room air He reports no dose prohibiting toxicities associated with first cycle Home Medications Medication Instructions Recorded Confirmed Type ALPRAZolam [Alprazolam] 0.5 mg PO TID 07/24/16 08/08/16 History Atenolol 50 mg PO DAILY 07/24/16 08/08/16 History Citalopram Hydrobromide [Celexa] 10 mg PO DAILY 07/24/16 08/08/16 History Colchicine [Colcrys] 0.6 mg PO DAILY 07/24/16 08/08/16 History Diclofenac Sodium [Diclofenac 1 % TOP BID PRN 07/24/16 08/08/16 History Sodium 1% Gel] Ferrous Sulfate 325 mg PO DAILY 07/24/16 08/08/16 History Furosemide 40 mg PO BID 07/24/16 08/08/16 History HYDROcodone/ACETAMIN 10-325 [[place] 1 tablet PO Q6H PRN 07/24/16 08/08/16 History 10-325] Ketoconazole 2% Cream [Nizoral 2% 1 applic TOP BID 07/24/16 08/08/16 History Cream] Pantoprazole Tab [Protonix Tab] 40 mg PO DAILY 07/24/16 08/08/16 History Pregabalin [Lyrica] 100 mg PO TID 07/24/16 08/08/16 History Probenecid 250 mg PO Q12HR 07/24/16 08/08/16 History Rivaroxaban [Xarelto] 20 mg PO DAILY 07/24/16 08/08/16 History guaiFENesin [Mucus Relief] 400 mg PO Q4HR PRN 07/24/16 08/08/16 History hydrALAZINE TAB [Apresoline Tab] 25 mg PO BID 07/24/16 08/08/16 History hydrOXYzine pamoate [Hydroxyzine 50 mg PO Q6HR PRN 07/24/16 08/08/16 History Pamoate] Allergies Allergy/AdvReac Type Severity Reaction Status Date / Time acetaminophen [From NyQuil] Allergy Intermediate Swelling Verified 09/07/14 08: 12 of Lip/Tongue/Throat dextromethorphan Allergy Intermediate Swelling Verified 09/07/14 08:12 [From NyQuil] of Lip/Tongue/Throat doxylamine [From NyQuil] Allergy Intermediate Swelling Verified 09/07/14 08:12 of Lip/Tongue/Throat pseudoephedrine [From NyQuil] Allergy Intermediate Swelling Verified 09/07/14 08 :12 of Lip/Tongue/Throat Medical,Surgical,& Family Hx - Medical History Cardio: History of: Hypertension (on meds) Respiratory: History of: Respiratory Problems (uses cpap) Gastrointestinal: History of: Gastrointestinal Cancer (Pt reports colon cancer surgery at [place] in December 2015) Other: History of: Cancer (active treatment) - Family History Family History: Reports;: Family Cancer (grandfather and grandmother), Family Diabetes (aunt), Family Hypertension (mother and father) - Social History Smoking Status: Former smoker Frequency of Alcohol Use: None Type of Drug Use: None - Constitutional Constitutional: Absent: fatigue, fever(s), night sweats - EENT Eye: Absent: loss of vision Ears: Absent: ear discharge, ear pain Nose, mouth and throat: Absent: neck mass, neck pain, odynophagia - Cardiovascular Cardiovascular ROS IM: Absent: chest pain, edema - Respiratory Respiratory: Absent: cough - Gastrointestinal Gastrointestinal: Absent: cramping, diarrhea - Genitourinary Genitourinary ROS male: Absent: hematuria Exam - Constitutional Vitals: Period Temp Pulse Resp BP Sys/[place] Pulse Ox Last 24 Hr 97.8 F-98.1 F 68-81 18-22 142-170/77-105 89-100 General appearance: no acute distress, morbidly obese - Head Head Exam: Present: atraumatic - Eye Eye Exam: Present: EOMI. Absent: conjunctival injection, periorbital swelling, scleral icterus Pupils: Present: PERRL - ENT ENT exam: Present: normal external ear exam - Neck Neck exam: Present: normal inspection. Absent: lymphadenopathy - Respiratory Respiratory exam: Present: CTAB. Absent: accessory muscle use, chest wall tenderness - Cardiovascular Cardiovascular exam: Present: RRR - GI/Abdominal GI/Abdominal exam: Absent: guarding Results - Labs CBC & BMP: 08/08/16 09:58 08/08/16 Unknown
[2016-08-09] MEDS ORDERED: DICLOFENAC 1% GEL 100 GM TUBE TOP PRN (09:13)
[2016-08-09] MEDS ORDERED: RIVAROXABAN 20 MG TABLET PO SCH (09:30)
[2016-08-09] MEDS ORDERED: HydrOXYzine PAMOATE 25 MG CAPSULE PO PRN (10:00)
[2016-08-09] MEDS: FLUOROURACIL IV SCH (12:54)
[2016-08-09] MEDS: SODIUM CHLORIDE 0.9% IV SCH (12:54)
[2016-08-09] MEDS ORDERED: ALPRAZolam 0.5 MG TABLET PO SCH (15:00)
[2016-08-09] MEDS ORDERED: PREGABALIN 100 MG CAPSULE PO SCH (15:00)
[2016-08-09] MEDS ORDERED: FUROSEMIDE 40 MG TABLET PO SCH (16:00)
[2016-08-09] MEDS: HydrOXYzine PAMOATE 50 MG CAPSULE PO PRN (20:42)
[2016-08-09] MEDS ORDERED: hydrALAZINE 25 MG TABLET PO SCH (21:00)
[2016-08-09] MEDS ORDERED: PROBENECID 500 MG TABLET PO SCH (21:00)
[2016-08-09] MEDS ORDERED: KETOCONAZOLE 2% CREAM 30 GM TUBE TOP SCH (21:00)
[2016-08-10] MEDS ORDERED: ATENOLOL 50 MG TABLET PO SCH (09:00)
[2016-08-10] MEDS ORDERED: CITALOPRAM 20 MG TABLET PO SCH (09:00)
[2016-08-10] MEDS ORDERED: FERROUS SULFATE 325 MG TABLET PO SCH (09:00)
[2016-08-10] MEDS ORDERED: PANTOPRAZOLE 40 MG TABLET PO SCH (09:00)
--- NOTE | 2016-08-10 09:02 | Oncology Progress Note ---
Assessment and Plan (1) Colon cancer metastasized to lung Status: Acute Assessment and plan: Continuing cycle 2 chemotherapy with FOLFOX. We will consider for bevacizumab with perhaps cycle 3 or 4. We are awaiting complete healing of his Mediport catheter with cycle 2. This would also increase his risk for further thromboembolism. Current Visit: No Oncology Subjective PN Interval history: 46-year-old male with metastatic colon cancer here for cycle 2 infusional chemotherapy. The patient has tolerated therapy reasonably well. I have noted slightly more activity this admission with him up on the side of the bed. He does still require a moderate amount of assistance with bathing and changing. He denies pain or dyspnea. His tolerance of the chemotherapy appears very well. His physical exam is unchanged from history and physical documentation. He will resume all home medications. He will follow-up at the office on August 22 for next chemotherapy Exam - Constitutional Vitals: Period Temp Pulse Resp BP Sys/[place] Pulse Ox Last 24 Hr 97.6 F-98.7 F 60-76 18-24 139-171/72-100 92-96 Results - Labs CBC & BMP: 08/08/16 09:58 08/08/16 Unknown
[2016-08-10] MEDS: PROBENECID 500 MG TABLET PO SCH (10:13)
[2016-08-10] MEDS: RIVAROXABAN 10 MG TABLET PO SCH (10:14)
[2016-08-10] MEDS: ATENOLOL 50 MG TABLET PO SCH (10:14)
[2016-08-10] MEDS: FUROSEMIDE 40 MG TABLET PO SCH (10:14)
[2016-08-10] MEDS: PANTOPRAZOLE 40 MG TABLET PO SCH (10:14)
[2016-08-10] MEDS: COLCHICINE 0.6 MG TABLET PO SCH (10:14)
[2016-08-10] MEDS: FERROUS SULFATE 325 MG TABLET PO SCH (10:14)
[2016-08-10] MEDS: PREGABALIN 100 MG CAPSULE PO SCH (10:14)
[2016-08-10] MEDS: ALPRAZolam 0.5 MG TABLET PO SCH (10:14)
[2016-08-10] MEDS: CITALOPRAM 20 MG TABLET PO SCH (10:14)
[2016-08-10] MEDS: hydrALAZINE 25 MG TABLET PO SCH (10:14)
[2016-08-10] MEDS: HydrOXYzine PAMOATE 50 MG CAPSULE PO PRN (10:15)
[2016-08-10] MEDS: KETOCONAZOLE 2% CREAM 30 GM TUBE TOP SCH (10:15)
[2016-08-10 11:12] VITALS: BP 139/75
[2016-08-10] MEDS ORDERED: HEPARIN LOCK FLUSH 500 UNIT/5 ML SYRINGE IV ONE (11:24)
== END 2016-08-10 12:30 | disposition home or self-care (01) | DRG 847 ==
LOC: N.4E 08:31
PROVIDERS: ADMIT Specialist; ATTEND Specialist